=== PATIENT | female | born 1990 | race Caucasian/White ===

== ENCOUNTER 2018-03-30 13:40 | Outpatient (CLI) | payer MEDICAID ==
[2018-03-30 14:24] LABS: APPEARANCE,URINE CLEAR; BILIRUBIN,URINE NEGATIVE (NEGATIVE); COLOR,URINE YELLOW; GLUCOSE, URINE NEGATIVE (NEGATIVE); KETONES,URINE NEGATIVE (NEGATIVE); LEUKOCYTE ESTERASE,URINE TRACE (NEGATIVE); NITRITE,URINE NEGATIVE (NEGATIVE); PROTEIN,URINE NEGATIVE (NEGATIVE); URINE SPECIFIC GRAVITY 1.016; UROBILINOGEN,URINE NEGATIVE mg/dL (<2.0)
[2018-03-30 14:38] LABS: URINE AMPHETAMINES SCREEN NEGATIVE; URINE BARBITURATES SCREEN NEGATIVE; URINE BENZODIAZEPINES SCREEN NEGATIVE; URINE COCAINE SCREEN NEGATIVE; URINE MARIJUANA (THC) SCREEN NEGATIVE; URINE METHADONE SCREEN NEGATIVE; URINE PHENCYCLIDINE SCREEN NEGATIVE
[2018-03-30 16:09] LABS: BACTERIA (WET MOUNT) 4+ BACTERIA SEEN; EPITHELIALS (WET MOUNT) 4+ EPITHELIALS SEEN; T.VAGINALIS (WET MOUNT) NO TRICHOMONAS SEEN; WBCS (WET MOUNT) 2+ WBCS SEEN; YEAST (WET MOUNT) NO YEAST SEEN
--- NOTE | 2018-03-30 17:17 | RADIOLOGY REPORT (SQ) ---
EXAM DESCRIPTION: U/S OB 14+ TRNABD 1GES W/O DOP COMPLETED DATE/TIME: 03/30/2018 5:05 pm REASON FOR STUDY: no care with vaginal bleeding COMPARISON: None. TECHNIQUE: Static and Dynamic grayscale imaging performed of gravid uterus using transabdominal appr oach. Additional selected color Doppler and spectral images recorded. All stored on PACS. LIMITATIONS: None. FINDINGS: FETUSES SEEN:1 EGA: 30 weeks 1 day. Calculated using BPD,FL,HC,AC documented on images. No discrepancy with clinica l dates. [place]: 06/07/2018 PATRIC: 11.9 PLACENTA: Anterior location GRADE: I PRESENTATION: Cephalic. ANATOMY: HEART RATE: 124 beats per minute. FOUR CHAMBER HEART: Visualized. THREE VESSEL CORD: Yes. CORD INSERTION: Visualized. KIDNEYS AND BLADDER: Visualized. Appear normal. STOMACH: Visualized. Appears normal. SPINE: Normal as visualized. BRAIN AND LATERAL VENTRICLES: Poorly visualized. OTHER: No other significant finding. MATERNAL ADNEXA: Maternal ovaries not visualized. CERVICAL LENGTH: 3.1 cm. Closed. OTHER: No other significant finding. IMPRESSION: LIVING INTRAUTERINE . ESTIMATED GESTATIONAL AGE 30 WEEKS 1 DAY. NO VISUALIZED ANOMALIES. Trimester of : Third trimester - 28 weeks to delivery. TECHNICAL DOCUMENTATION: JOB ID: [id number] [employer]- All Rights Reserved Reading location - IP/workstation name: [email or web address]
[2018-03-30 17:31] LABS: CHLAM PCR NOT DETECTED (NOT DETECT); GON PCR NOT DETECTED (NOT DETECT)
== END 2018-03-30 18:18 | disposition home or self-care (01) ==
LOC: LC 13:40
PROVIDERS: ATTEND Student in an Organized Health Care Education/Training Program
PROC: 4A1HXCZ Monitoring of Products of Conception, Cardiac Rate, External Approach (ICD-10-PCS; principal; 2018-03-30)
DX: O47.03 False labor before 37 completed weeks of gestation, third trimester (principal); O46.93 Antepartum hemorrhage, unspecified, third trimester; O09.33 Supervision of pregnancy with insufficient antenatal care, third trimester; Z3A.30 30 weeks gestation of pregnancy
CPT/HCPCS: 76805; 80307; 81001; 87210; 87491; 87591

== ENCOUNTER 2018-06-08 12:22 | Inpatient (IN) | payer MEDICAID ==
[2018-06-08 13:14] LABS: APPEARANCE,URINE CLOUDY; BILIRUBIN,URINE NEGATIVE (NEGATIVE); COLOR,URINE YELLOW; GLUCOSE, URINE NEGATIVE (NEGATIVE); KETONES,URINE NEGATIVE (NEGATIVE); LEUKOCYTE ESTERASE,URINE LARGE (NEGATIVE); NITRITE,URINE NEGATIVE (NEGATIVE); PROTEIN,URINE NEGATIVE (NEGATIVE); URINE SPECIFIC GRAVITY 1.023
[2018-06-08 13:33] LABS: URINE AMPHETAMINES SCREEN NEGATIVE; URINE BARBITURATES SCREEN NEGATIVE; URINE BENZODIAZEPINES SCREEN NEGATIVE; URINE COCAINE SCREEN NEGATIVE; URINE MARIJUANA (THC) SCREEN NEGATIVE; URINE METHADONE SCREEN NEGATIVE; URINE PHENCYCLIDINE SCREEN NEGATIVE
[2018-06-08] MEDS ORDERED: RINGERS SOLUTION,LACTATED 1,000 ML IV ONE (14:52)
[2018-06-08] MEDS ORDERED: RINGERS SOLUTION,LACTATED 1,000 ML IV PRN (14:52)
--- NOTE | 2018-06-08 15:03 | Admission Physical ---
Datetime Report Generated by CPN: 06/08/2018 15:02 CURRENT ADMISSION Chief Complaint: Uterine Contractions Indication for Induction: Not Applicable Admit Impression : Term, Intrauterine ; Active Labor; Intact Membranes Admit Plan: Admit to Unit; Initiate Labor Protocol ALLERGIES Medication Allergies: No Medication Allergies: No Known Allergies (03/30/2018) Latex: No Latex Allergies Food Allergies: NONE Environmental Allergies: NONE OBSTETRICAL HISTORY EDC: 06/04/2018 00:00 : 6 Para: 4 Term: 4 : 0 SAB: 1 IAB: 0 Ectopic: 0 Livin Cesareans: 0 VBACs: 0 Multiple Births: 0 Gestational Diabetes: No Rh Sensitization: No Incompetent Cervix: No MILLI: No Infertility: No ART Treatment: No Uterine Anomaly: No IUGR: No Hx Previous C/S: No Macrosomia: No Hx Loss/Stillborn: No PIH: No Hx : No Placenta Previa/Abruption: No Depression/PP Depression: Yes PTL/PROM: No Post Hemorrhage: No Current Procedures: Ultrasound; NST Obstetrical History Comments: G1- BOY-7-11 @ 42 WEEKS- IOL (FAILED FORCEPS-VACUUM) G2- BOY-7-9- IOL @ 40 WEEKS G3- GIRL-6-9- IOL @ 41 WEEKS- ANGELMANS SYNDROME G4- GIRL-7-9 SAB- NO D_C G6- CURRENT SEE RECORDS Alcohol: No Marijuana : No Cocaine: No Other Illicit Drugs: No Cigarettes: Current Everyday Smoker. [id number] Cigarette Frequency: > 10 per day Advised to Stop: Yes MEDICAL HISTORY Diabetes: No Blood Transfusion: No Pulmonary Disease (Asthma, TB): No Breast Disease: No Hypertension: No Supervisor Transferring And Boxing Surgery: No Heart Disease: No Hosp/Surgery: No Autoimmune Disorder: No Anesthetic Complications: No Kidney Disease: No Abnormal Pap Smear: No Neuro/Epilepsy: No Psychiatric Disorders: Yes Other Medical Diseases: No Hepatitis/Liver Disease: No Significant Family History: No Varicosities/Phlebitis: No Trauma/Violence : No Thyroid Dysfunction: No Medical History Comments: DEPRESSION, Anxiety INFECTIOUS HISTORY Gonorrhea: No Genital Herpes: No Chlamydia: No Tuberculosis: No Syphilis: No Hepatitis: No HIV/AIDS Exposure: No Rash or Viral Illness: No HPV: No Infectious History Comments: H/O RECURRING BV PHYSICAL EXAM General: Normal HEENT: Normal Neurologic: Normal Thyroid: Deferred Heart: Normal Lungs: Normal Breast: Deferred Back: Normal Abdomen: Normal Genitourinary Exam: Deferred Extremities: Normal DTRs: Normal Pelvic Type: Adequate Vital Signs: Reviewed; Within Normal Limits MEMBRANES Membranes: Intact FETUS A EGA: 40.4 Monitoring: External US FHR- Baseline: 130 Variability: Moderate 6-25bpm Accelerations: 15X15 Presentation: Vertex Admit Comment: Active labor Daughter has Angelman's Syndrome-Nursery informed of this Plan to admit records available amd reviewed PLANS FOR LABOR AND DELIVERY Labor and Delivery: None Feeding Preference: Breast Benefit of Breast Feed Discussed: Yes Circumcision: N/A INFORMED CONSENT Assignment: Maria Elena Bundy MD Signature: with User ID: [email or web address] : with User ID: [email or web address] : I personally evaluated and examined the patient in conjunction with the MLP and agree with the assessment, treatment plan and disposition.
[2018-06-08] MEDS ORDERED: OXYTOCIN/NORMAL SALINE 20 UNIT/1,000 ML RTUINJ ONE (15:16)
[2018-06-08] MEDS ORDERED: LIDOCAINE 1% INJ-PF (10 MG/ML) 30 ML SDV ONE (15:16)
[2018-06-08] MEDS ORDERED: MISOPROSTOL 0.2 MG TABLET ONE (15:16)
[2018-06-08 15:39] LABS: ABSOLUTE LYMPHOCYTES (AUTO) 1.6 10^3/uL (0.5-4.7); ABSOLUTE MONOCYTES (AUTO) 0.5 10^3/uL (0.1-1.4); ABSOLUTE NEUT (AUTO) 4.9 10^3/uL (1.7-8.2); BASOPHILS % (AUTO) 0.3 % (0-2); EOSINOPHILS % (AUTO) 0.5 % (0-6); HEMATOCRIT 33.5 % (36.0-47.0); HEMOGLOBIN 11.4 g/dL (12.0-15.5); LYMPHOCYTES % (AUTO) 22.4 % (13-45); MEAN CORPUSCULAR HEMOGLOBIN 29.9 pg (27.0-33.4); MEAN CORPUSCULAR HGB CONC 34.2 g/dL (32.0-36.0); MEAN CORPUSCULAR VOLUME 88 fl (80-97); MONOCYTES % (AUTO) 7.7 % (3-13); PLATELET COUNT 312 10^3/uL (150-450); RED BLOOD COUNT 3.82 10^6/uL (3.72-5.28); SEGMENTED NEUTROPHILS % (AUTO) 69.1 % (42-78); TOTAL CELLS COUNTED % (AUTO) 100 %; WHITE BLOOD COUNT 7.1 10^3/uL (4.0-10.5)
[2018-06-08] MEDS ORDERED: DIPH/PERTUSS(ACELL)/TETANUS VAC/PF 0.5 ML SYR (>=10YO) IM PRN (17:28)
[2018-06-08] MEDS ORDERED: ACETAMINOPHEN WITH CODEINE #3 TABLET PO PRN ×2 (17:28)
[2018-06-08] MEDS ORDERED: DIBUCAINE 1% OINTMENT 28 GM TP PRN (17:28)
[2018-06-08] MEDS ORDERED: NA PHOS,M-B/NA PHOS,DI-BA (ADULT) 133 ML ENEMA PR PRN (17:28)
[2018-06-08] MEDS ORDERED: PROMETHAZINE HCL 25 MG TABLET PO PRN (17:28)
[2018-06-08] MEDS ORDERED: DIPHENHYDRAMINE HCL 25 MG CAPSULE PO PRN (17:28)
[2018-06-08] MEDS ORDERED: OXYTOCIN/NORMAL SALINE 20 UNIT/1,000 ML RTUINJ IV PRN (17:28)
[2018-06-08] MEDS ORDERED: GLYCERIN/WITCH HAZEL LEAF 1 EACH MED..PAD TP PRN (17:28)
[2018-06-08] MEDS ORDERED: MEASLES,MUMPS&RUBELLA VACC/PF 0.5 ML VIAL SUBCUT PRN (17:28)
[2018-06-08] MEDS ORDERED: MAGNESIUM HYDROXIDE SUSP 30 ML UDCUP PO PRN (17:28)
[2018-06-08] MEDS ORDERED: BENZOCAINE/MENTHOL AEROSOL SPRAY 56 ML TOP PRN (17:28)
[2018-06-08] MEDS ORDERED: PROMETHAZINE HCL INJ 25 MG/1 ML VIAL IV PRN (17:28)
[2018-06-08] MEDS ORDERED: PSEUDOEPHEDRINE HCL 30 MG TABLET PO PRN (17:28)
[2018-06-08] MEDS ORDERED: ZOLPIDEM TARTRATE 5 MG TABLET PO PRN (17:28)
[2018-06-08] MEDS ORDERED: PROMETHAZINE HCL 25 MG SUPP.RECT PR PRN (17:28)
[2018-06-08] MEDS ORDERED: ACETAMINOPHEN 650 MG SUPP.RECT PR PRN (17:28)
--- NOTE | 2018-06-08 18:41 | Delivery Summary ---
Del Sum A-C Datetime Report Generated by CPN: 06/08/2018 18:41 DELIVERY PERSONNEL DELIVERY PERSONNEL: [id number] Delivery Doctor:: Maria Elena Bundy MD Labor and Delivery Nurse:: Sadaf Johnson RN Nursery Nurse:: Nisha Chester RN Nursery Nurse:: Karine Arias RN Insurance Policy Issue Clerk/ORTHOTICS PROSTHETICS TECHNICIAN: Kala Taveras CNA II Insurance Policy Issue Clerk/ORTHOTICS PROSTHETICS TECHNICIAN: Carmen Lunsford, AWS DEVELOPER Additional Personnel: : Rachelle Travis RN MATERNAL INFORMATION Delivery Anesthesia: Pudendal Medications After Delivery: Pitocin Drip 20 Units/1000ml NSS Estimated Blood Loss (ml): 200 Maternal Complications: None Provider Comments: Pt desired pudendal block for analgesia. Pudendal block performed in the usual fashion. VFI delivered in Direct OP presentation. Loose nuchal and loose body cord easily reduced. Shoulders and body delivered without difficulty. cord doubly clamped and cut and infant to maternal abdomen. Placenta delivered intact spontaneously. FF at U. Good hemostasis after repair of superficial laceration on right labia repaired. Mother and baby stable upon provider leaving the room. LABOR SUMMARY EDC: 06/04/2018 00:00 No. Babies in Womb: 1 Attempted: No Labor Anesthesia: Pudendal LABOR INFORMATION Reason for Induction: Not Applicable Onset of Labor: 06/08/2018 14:41 Complete Dilatation: 06/08/2018 16:44 Group B Beta Strep: Negative MEMBRANES Membranes Rupture Method: Artificial Rupture of Membranes: 06/08/2018 16:07 Length of Rupture (hr): 0.77 Amniotic Fluid Color: Light Meconium Amniotic Fluid Amount: Small STAGES OF LABOR Stage 1 hr: 2 Stage 1 min: 3 Stage 2 hr: 0 Stage 2 min: 9 Stage 3 hr: 0 Stage 3 min: 3 Total Time in Labor hr: 2 Total Time in Labor min: 15 VAGINAL DELIVERY Episiotomy: None Laceration #1: Vaginal Laceration Extension #1: N/A Laceration Repair: Yes Laceration Repair Note: superficial right labial laceration repaired. good hemostasis Sponge Count Correct: Yes Sharps Count Correct: Yes CSECTION DELIVERY Primary Indication: N/A Secondary Indication: N/A CSection Incidence: N/A Labor: N/A Elective: N/A CSection Incision: N/A BABY A INFORMATION Delivery Date/Time: 06/08/2018 16:53 Method of Delivery: Vaginal Born in Route : No : N/A Forceps: N/A Vacuum Extraction: N/A Shoulder Dystocia : No PRESENTATION/POSITION BABY A Presentation: Cephalic Cephalic Presentation: Vertex Vertex Position: Occipital Posterior Breech Presentation: N/A PLACENTA INFORMATION BABY A Placenta Delivery Time : 06/08/2018 16:56 Placenta Method of Delivery: Spontaneous Placenta Status: Delivered SCORES BABY A Heart Rate 1 min: >100 bpm Resp Effort 1 min: Good Cry Reflex Irritability 1 min: Cough or Sneeze or Pulls Away Muscle Tone 1 min: Active Motion Color 1 min: Blue/Pale Resuscitation Effort 1 min: Tactile Stimulation SCORE 1 MIN: 8 Heart Rate 5 min: >100 bpm Resp Effort 5 min: Good Cry Reflex Irritability 5 min: Cough or Sneeze or Pulls Away Muscle Tone 5 min: Active Motion Color 5 min: Body [place], Extremities Blue Resuscitation Effort 5 min: Tactile Stimulation SCORE 5 MIN: 9 INFORMATION BABY A Gestational Age at Delivery: 40.4 Gestational Status: Full Term- 39- 40.6 Weeks Infant Outcome : Liveborn Condition : Stable Sex: Female IDENTIFICATION BABY A Verification Date/Time: 06/08/2018 17:18 ID Band Number: [id number] Mother's Name Verified: Yes RN Verifying Infant: J, RN and A.Travis, RN WEIGHT/LENGTH BABY A Birthweight (gm): 3289 Weight (lb): 7 Weight (oz): 4 Infant Length (in): 20.00 Length (cm): 50.80 CORD INFORMATION BABY A No. Cord Vessels: 3 Nuchal Cord : Around Neck x1, Loose Nuchal Cord- Other: Body cord Cord Blood Taken: Yes-For Eval (Mom's Blood Type - or O+) Suction: Mouth; Nose ASSESSMENT BABY A Infant Complications: None Physical Findings at Delivery: Within Normal Limits Infant Respirations: Appears Normal Skin to Skin: Yes Infant Care By: JERARDO Crockett Transferred To: Remains with Mother SIGNATURES Signature: with User ID: [email or web address] : I personally evaluated and examined the patient in conjunction with the MLP and agree with the assessment, treatment plan and disposition.
[2018-06-08] MEDS: FAMOTIDINE 20 MG TABLET PO SCH (22:31)
[2018-06-08] MEDS: IBUPROFEN 800 MG TABLET PO SCH (22:31)
[2018-06-09] MEDS: IBUPROFEN 800 MG TABLET PO SCH ×3 (05:27→21:53)
[2018-06-09 07:57] LABS: HEMOGLOBIN 9.9 g/dL (12.0-15.5); MEAN CORPUSCULAR HEMOGLOBIN 30.1 pg (27.0-33.4); MEAN CORPUSCULAR HGB CONC 34.1 g/dL (32.0-36.0); MEAN CORPUSCULAR VOLUME 88 fl (80-97); PLATELET COUNT 241 10^3/uL (150-450); RED BLOOD COUNT 3.28 10^6/uL (3.72-5.28); RED CELL DISTRIBUTION WIDTH 14.1 % (11.5-14.0); WHITE BLOOD COUNT 7.7 10^3/uL (4.0-10.5)
[2018-06-09] MEDS: PRENATAL VITAMIN W DHA CAPSULE PO SCH (09:49)
[2018-06-09] MEDS: DOCUSATE SODIUM 100 MG CAPSULE PO SCH ×3 (09:50→17:20)
[2018-06-09] MEDS: FAMOTIDINE 20 MG TABLET PO SCH ×2 (09:58→21:52)
[2018-06-09] MEDS: FERROUS SULFATE 325 MG TABLET PO SCH ×3 (09:59→17:20)
[2018-06-09] MEDS: SENNOSIDES/DOCUSATE 8.6-50 MG 1 EACH TABLET PO SCH (10:00)
[2018-06-09] MEDS: SERTRALINE HCL 50 MG TABLET PO SCH ×2 (10:00→10:04)
--- NOTE | 2018-06-09 12:24 | PDOC PROGRESS REPORT ---
Subjective-OB Progress Note for:: 06/09/18 Subjective: Pt doing well, no concerns. She reports light bleeding, reg diet and voiding without difficulty. Bonding with baby. Physical Exam (OB) Vital Signs: Temp Pulse Resp BP Pulse Ox 98.2 F 57 L 16 113/67 99 06/09/18 07:27 06/09/18 07:27 06/09/18 07:27 06/09/18 07:27 06/09/18 07:27 Intake & Output 06/08/18 06/09/18 06/10/18 06:59 06:59 06:59 Intake Total 600 Balance 600 Weight 71.7 kg - Lochia Lochia Amount: Small 10-25 ml Lochia Color: Rubra/Red - Abdomen Description: Soft, Round Hernia Present: No Fundal Description: Firm, Midline Fundal Height: u/u - u/2 Objective-Diagnostic Laboratory: 06/09/18 07:30 06/08/18 06/08/18 06/08/18 12:35 15:24 15:24 WBC 7.1 RBC 3.82 Hgb 11.4 L Hct 33.5 L MCV 88 MCH 29.9 MCHC 34.2 RDW 14.0 Plt Count 312 Seg Neutrophils % 69.1 Lymphocytes % 22.4 Monocytes % 7.7 Eosinophils % 0.5 Basophils % 0.3 Absolute Neutrophils 4.9 Absolute Lymphocytes 1.6 Absolute Monocytes 0.5 Absolute Eosinophils 0.0 Absolute Basophils 0.0 Urine Color YELLOW Urine Appearance CLOUDY Urine pH 6.0 Ur Specific [place] 1.023 Urine Protein NEGATIVE Urine Glucose (UA) NEGATIVE Urine Ketones NEGATIVE Urine Blood NEGATIVE Urine Nitrite NEGATIVE Ur Leukocyte Esterase LARGE H Blood Type O POSITIVE Antibody Screen NEGATIVE 06/09/18 07:30 WBC 7.7 RBC 3.28 L Hgb 9.9 L Hct 29.0 L MCV 88 MCH 30.1 MCHC 34.1 RDW 14.1 H Plt Count 241 Seg Neutrophils % Lymphocytes % Monocytes % Eosinophils % Basophils % Absolute Neutrophils Absolute Lymphocytes Absolute Monocytes Absolute Eosinophils Absolute Basophils Urine Color Urine Appearance Urine pH Ur Specific [place] Urine Protein Urine Glucose (UA) Urine Ketones Urine Blood Urine Nitrite Ur Leukocyte Esterase Blood Type Antibody Screen Assessment and Plan(PN) - Assessment and Plan (1) Obstetric labial laceration, delivered, current hospitalization Is this a current diagnosis for this admission?: Yes (2) Vaginal delivery Is this a current diagnosis for this admission?: Yes - Time Spent with Patient Time with patient: Less than 15 minutes Medications reviewed and adjusted accordingly: Yes - Disposition Anticipated Discharge: Home Within: within 24 hours
[2018-06-10] MEDS: IBUPROFEN 800 MG TABLET PO SCH (06:49)
[2018-06-10 08:56] VITALS: BP 123/67
[2018-06-10] MEDS: FAMOTIDINE 20 MG TABLET PO SCH (09:09)
[2018-06-10] MEDS: SENNOSIDES/DOCUSATE 8.6-50 MG 1 EACH TABLET PO SCH (09:09)
[2018-06-10] MEDS: PRENATAL VITAMIN W DHA CAPSULE PO SCH (09:09)
[2018-06-10] MEDS: DOCUSATE SODIUM 100 MG CAPSULE PO SCH (09:10)
[2018-06-10] MEDS: FERROUS SULFATE 325 MG TABLET PO SCH (09:10)
[2018-06-10] MEDS: SERTRALINE HCL 50 MG TABLET PO SCH (09:10)
--- NOTE | 2018-06-10 10:08 | PDOC DISCHARGE SUMMARY ---
Final Diagnosis Discharge Date: 06/10/18 - Final Diagnosis (1) History of depression Is this a current diagnosis for this admission?: Yes (2) Obstetric labial laceration, delivered, current hospitalization Is this a current diagnosis for this admission?: Yes (3) Vaginal delivery Is this a current diagnosis for this admission?: Yes (4) Meconium in amniotic fluid Is this a current diagnosis for this admission?: Yes (5) Active labor at term Is this a current diagnosis for this admission?: Yes Discharge Data - Discharge Medication Home Medications: No122/Iron/Folic Acid [ Multi Tablet] 1 each PO DAILY 06/08/18 Sertraline HCl [Zoloft 50 mg Tablet] 50 mg PO DAILY 06/08/18 Procedures: NST Intrapartum Procedure(s): Spontaneous Vaginal Delivery - Diagnosis Test Laboratory: Temp Pulse Resp BP Pulse Ox 98.1 F 63 16 123/67 100 06/10/18 08:12 06/10/18 08:12 06/10/18 08:12 06/10/18 08:12 06/10/18 08:12 06/08/18 06/08/18 06/09/18 12:35 15:24 07:30 RBC 3.82 3.28 L Hgb 11.4 L 9.9 L Hct 33.5 L 29.0 L Urine Opiates Screen NEGATIVE - Discharge information/Instructions Discharge Activity: Balance Activity w/Rest, Pelvic Rest Discharge Diet: Regular Disposition: HOME, SELF-CARE Follow up with: [facility] in: 4, Weeks
== END 2018-06-10 13:25 | disposition home or self-care (01) | DRG 807 ==
LOC: LC 12:22 → LR 14:50 → 2S 19:48
PROVIDERS: ADMIT Student in an Organized Health Care Education/Training Program; ATTEND Student in an Organized Health Care Education/Training Program
PROC: 10E0XZZ Delivery of Products of Conception, External Approach (ICD-10-PCS; principal; 2018-06-08)
PROC: 0HQ9XZZ Repair Perineum Skin, External Approach (ICD-10-PCS; 2018-06-08)
PROC: 4A1HXCZ Monitoring of Products of Conception, Cardiac Rate, External Approach (ICD-10-PCS; 2018-06-08)
DX: O69.81X0 Labor and delivery complicated by cord around neck, without compression, not applicable or unspecified (principal); O77.0 Labor and delivery complicated by meconium in amniotic fluid; O70.0 First degree perineal laceration during delivery; O99.334 Smoking (tobacco) complicating childbirth; F17.210 Nicotine dependence, cigarettes, uncomplicated; O69.2XX0 Labor and delivery complicated by other cord entanglement, with compression, not applicable or unspecified; O99.344 Other mental disorders complicating childbirth; F41.9 Anxiety disorder, unspecified; F42.9 Obsessive-compulsive disorder, unspecified; Z3A.40 40 weeks gestation of pregnancy; Z37.0 Single live birth
CPT/HCPCS: 36415; 80307; 81005; 84112; 85025; 85027; 86592; 86850; 86900; 86901; 88307; J2590; J3490

== ENCOUNTER 2018-11-04 15:06 | Emergency (ER) | payer SELFPAY ==
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
--- NOTE | 2018-11-04 16:15 | RADIOLOGY REPORT (SQ) ---
EXAM DESCRIPTION: ANKLE RIGHT COMPLETE COMPLETED DATE/TIME: 11/04/2018 3:55 pm REASON FOR STUDY: lateral foot/ankle pain s/p injury x1wk COMPARISON: None. NUMBER OF VIEWS: Three views. TECHNIQUE: AP, lateral, and oblique radiographic images acquired of the right ankle. LIMITATIONS: None. FINDINGS: MINERALIZATION: Normal. BONES: No acute fracture or dislocation. The ankle mortise is maintained. SOFT TISSUES: No soft tissue swelling. No radiopaque foreign body. IMPRESSION: No radiographic evidence for acute fracture at the right ankle. TECHNICAL DOCUMENTATION: JOB ID: [id number] 2010 [employer]- All Rights Reserved Reading location - IP/workstation name: [email or web address]
--- NOTE | 2018-11-04 16:18 | RADIOLOGY REPORT (SQ) ---
EXAM DESCRIPTION: FOOT RIGHT COMPLETE COMPLETED DATE/TIME: 11/04/2018 3:55 pm REASON FOR STUDY: lateral foot/ankle pain s/p injury x1wk COMPARISON: None. NUMBER OF VIEWS: Three views. TECHNIQUE: AP, lateral and oblique radiographic images acquired of the right foot. LIMITATIONS: None. FINDINGS: MINERALIZATION: Normal. BONES: No acute fracture or dislocation. SOFT TISSUES: No soft tissue swelling. No radiopaque foreign body. IMPRESSION: No radiographic evidence for acute fracture at the right foot. TECHNICAL DOCUMENTATION: JOB ID: [id number] 2010 [employer]- All Rights Reserved Reading location - IP/workstation name: [email or web address]
[2018-11-04 16:41] VITALS: BP 127/81
== END 2018-11-04 16:40 | disposition home or self-care (01) ==
LOC: ER 15:06
DX: M79.671 Pain in right foot (principal); M25.571 Pain in right ankle and joints of right foot
CPT/HCPCS: 99283; 73610; 73630; L1902

== ENCOUNTER 2019-02-14 11:59 | Emergency (ER) | payer SELFPAY ==
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
[2019-02-14 14:34] LABS: ABSOLUTE LYMPHOCYTES (AUTO) 1.7 10^3/uL (0.5-4.7); ABSOLUTE MONOCYTES (AUTO) 0.3 10^3/uL (0.1-1.4); ABSOLUTE NEUT (AUTO) 3.4 10^3/uL (1.7-8.2); BASOPHILS % (AUTO) 0.6 % (0-2); EOSINOPHILS % (AUTO) 0.8 % (0-6); HEMATOCRIT 36.4 % (36.0-47.0); LYMPHOCYTES % (AUTO) 30.8 % (13-45); MEAN CORPUSCULAR HGB CONC 32.9 g/dL (32.0-36.0); MEAN CORPUSCULAR VOLUME 91 fl (80-97); MONOCYTES % (AUTO) 5.4 % (3-13); PLATELET COUNT 319 10^3/uL (150-450); RED BLOOD COUNT 3.99 10^6/uL (3.72-5.28); SEGMENTED NEUTROPHILS % (AUTO) 62.4 % (42-78); TOTAL CELLS COUNTED % (AUTO) 100 %; WHITE BLOOD COUNT 5.5 10^3/uL (4.0-10.5)
[2019-02-14 14:40] LABS: APPEARANCE,URINE CLEAR; BILIRUBIN,URINE NEGATIVE (NEGATIVE); COLOR,URINE YELLOW; GLUCOSE, URINE NEGATIVE (NEGATIVE); KETONES,URINE NEGATIVE (NEGATIVE); LEUKOCYTE ESTERASE,URINE TRACE (NEGATIVE); NITRITE,URINE NEGATIVE (NEGATIVE); PROTEIN,URINE NEGATIVE (NEGATIVE); URINE SPECIFIC GRAVITY 1.019; UROBILINOGEN,URINE NEGATIVE mg/dL (<2.0)
[2019-02-14 14:51] LABS: URINE AMPHETAMINES SCREEN NEGATIVE; URINE BARBITURATES SCREEN NEGATIVE; URINE BENZODIAZEPINES SCREEN NEGATIVE; URINE COCAINE SCREEN NEGATIVE; URINE MARIJUANA (THC) SCREEN NEGATIVE; URINE METHADONE SCREEN NEGATIVE; URINE PHENCYCLIDINE SCREEN NEGATIVE
[2019-02-14 14:52] LABS: ALBUMIN 4.6 g/dL (3.5-5.0); ALKALINE PHOSPHATASE 55 U/L (38-126); ANION GAP 8 (5-19); ASPARTATE AMINO TRANSFERASE 23 U/L (14-36); BILIRUBIN,DIRECT 0.2 mg/dL (0.0-0.4); BILIRUBIN,TOTAL 0.8 mg/dL (0.2-1.3); BLOOD UREA NITROGEN 13 mg/dL (7-20); CALCIUM 9.2 mg/dL (8.4-10.2); CARBON DIOXIDE 29 mmol/L (22-30); CHLORIDE 104 mmol/L (98-107); GLUCOSE 120 mg/dL (75-110); POTASSIUM 4.8 mmol/L (3.6-5.0); TOTAL PROTEIN 7.3 g/dL (6.3-8.2)
[2019-02-14 14:55] LABS: ACETAMINOPHEN < 10 ug/mL (10-30); ALCOHOL < 10 mg/dL (NONE DETECTED); SALICYLATE < 1.0 mg/dL (2.0-20.0)
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
[2019-02-14] MEDS: OLANZAPINE 2.5 MG TABLET PO SCH (17:31)
--- NOTE | 2019-02-14 19:55 | EKG REPORT ---
SEVERITY:- NORMAL ECG - SINUS RHYTHM : Confirmed by: Pilar Lai MD 14-Feb-2019 19:55:06
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
[2019-02-15 09:41] VITALS: BP 120/68
[2019-02-15] MEDS: OLANZAPINE 2.5 MG TABLET PO SCH (09:42)
--- NOTE | 2019-02-15 10:21 | ER Document Report ---
Doctor's Note Notes: 02/15/19 10:20 Rounds: Records reviewed and patient interviewed. Patient has a long history of mental conditions, having been diagnosed in the past with bipolar disorder and depression as well as anxiety and ADHD and ODD. All lab studies were normal. Vital signs are all normal. Patient appears to be medically stable for transfer or discharge. Magui Pappas MD
--- NOTE | 2019-02-15 12:12 | PSYCHOLOGICAL NOTE ---
Psych Note - Psych Note Date seen by psych provider: 02/15/19 Time seen by psych provider: 09:57 - Chart review at 0957. Evaluation from 1000- 1006. Psych Note: Medication recommendation made by the psychiatric medical provider, Dr. Ernestine MD., includes: Provide prescription for medication administered while in the ED Add Zyprexa 2.5MG BID Impression/Plan: Patient is cleared from acute psychiatric services. Recommendation to rescind 24 Hour IVC Petition. She denied current SI/HI, no observed psychosis, tolerated medication well with exception of some tiredness which is expected. Patient was alert and oriented x5 with linear thinking, good eye contact, able to carry on dialogue conversation and conversational speech was within normal limits for rate.tone/prosody. She has follow up appointment with [facility] on 02/17/19 at 0800 for general intake to initiate medication management and therapy. She was provided the outpatient MH resource sheet which documented appointment date and time, as well as highlighted IFS MCM. Privided Good Rx information. Roommate has baby and provided transportation home. Consulted with Dr. Lees regarding the management and care of patient. ED Physician in agreement with recommendations.
== END 2019-02-15 12:43 | disposition home or self-care (01) ==
LOC: ER 11:59
DX: F44.9 Dissociative and conversion disorder, unspecified (principal); Z72.89 Other problems related to lifestyle; F32.9 Major depressive disorder, single episode, unspecified; F60.3 Borderline personality disorder
CPT/HCPCS: 93005; 99285; 36415; 80307 ×4; 84703; 85025; 80053; 81001; 93010; J3490 ×2